=== PATIENT | female | born 1940 | race Caucasian/White ===

== ENCOUNTER 2020-05-01 09:11 | Outpatient (REF) | payer MEDICARE, OTHER, SELFPAY | END 2020-05-01 09:12 | disposition home or self-care (01) | LOC: HO.LAB 09:11 | PROVIDERS: Visit Provider Internal Medicine | DX: Z20.828 Contact with and (suspected) exposure to other viral communicable diseases (principal) | CPT/HCPCS: C9803; U0003 ==

== ENCOUNTER 2020-05-19 07:29 | Outpatient (REF) | payer MEDICARE, OTHER, SELFPAY ==
--- NOTE | 2020-05-19 08:05 | XR_ITS ---
EXAMINATION: XR LUMBOSACRAL SPINE CLINICAL INFORMATION: Back pain COMPARISON: None TECHNIQUE: Three views of the lumbosacral spine. FINDINGS: There is a mild scoliosis the lower lumbar sacral spine convex to left with apex at L4-L5 and convex to the right with apex at L5-S1. Bone alignment is otherwise normal. No fracture or dislocation is seen. There is degenerative disc disease at L4-L5. There is lower lumbar spine facet arthritis. There is evidence of atherosclerotic disease. There are surgical clips in the right upper quadrant suggestive of cholecystectomy. XR/XR lumbar spine 2-3V IMPRESSION: Scoliosis and degenerative changes. Atherosclerotic disease.
[2020-05-19 08:39] LABS: MANUAL DIFF FLAG NO
[2020-05-19 08:44] LABS: Basophils Percent Auto 0.3 % (0-2); Eosinophils Absolute Auto 0.4 X10*3/uL (0.0-0.4); Eosinophils Percent Auto 4.1 % (0-4); Hematocrit 34.2 % (37-47); Imm Gran Abs Auto 0.04 X10*3/uL (0.00-0.03); Imm Gran Pct Auto 0.4 % (0.0-0.4); Lymphocytes Absolute Auto 2.7 X10*3/uL (1.2-4.9); Lymphocytes Percent Auto 26.8 % (20-40); Mean Corpuscular HGB Conc 29.2 g/dl (31.0-35.0); Mean Corpuscular Hemoglobin 24.3 pg (27.0-33.0); Mean Platelet Volume 11.1 fL (9.4-12.3); Monocytes Absolute Auto 0.7 X10*3/uL (0.1-1.2); Monocytes Percent Auto 6.6 % (2-11); Neutrophils Absolute Auto 6.1 X10*3/uL (2.0-8.3); Neutrophils Percent Auto 61.8 % (45-73); Platelet Count 270 X10*3/uL (160-400); Red Blood Count 4.12 X10*6/uL (4.20-5.50); Red Cell Distribution Width 17.8 % (11.0-16.0); White Blood Count 9.9 X10*3/uL (4.8-10.8)
[2020-05-19 09:04] LABS: Estimated Average Glucose 232 mg/dL; Hemoglobin A1c % 9.7 %
[2020-05-19 09:14] LABS: Alanine Aminotransferase 17 U/L (0-31); Alkaline Phosphatase 73 U/L (39-117); Anion Gap 15 (12-20); Aspartate Amino Transferase 16 U/L (5-31); Bilirubin Total 0.3 mg/dL (0.0-1.0); Blood Urea Nitrogen 35 mg/dL (9-16); Calcium 9.2 mg/dL (8.4-10.2); Carbon Dioxide 27 mmol/L (22-29); Chloride 104 mmol/L (96-108); Cholesterol 100 mg/dL; Estimated Glomerular Filt Rate 35; Glucose Fasting 164 mg/dL (60-99); HDL Cholesterol 36 mg/dL; LDL Cholesterol Calculated 21 mg/dl; Potassium 4.1 mmol/l (3.3-5.1); Sodium 142 mmol/L (135-145); Total Protein 6.9 g/dL (6.5-8.0); Triglycerides 215 mg/dL
[2020-05-19 09:20] LABS: Creatinine Urine 95.03 mg/dL; Microalbum/Creatinine Ratio Ur 29.4 ug/mg cr
[2020-05-19 09:33] LABS: Thyroid Stimulating Hormone 1.44 uIU/mL (0.32-4.0)
== END 2020-05-19 07:30 | disposition home or self-care (01) ==
LOC: HO.LAB 07:29
PROVIDERS: PCP Internal Medicine; Visit Provider Internal Medicine
DX: E03.9 Hypothyroidism, unspecified (principal); E11.9 Type 2 diabetes mellitus without complications; Z00.00 Encounter for general adult medical examination without abnormal findings; M54.9 Dorsalgia, unspecified
CPT/HCPCS: 36415; 72100; 80053; 80061; 82043; 83036; 84443; 85025

== ENCOUNTER → 2020-06-11 13:28 | Outpatient (BNVA) | payer MEDICARE, OTHER, SELFPAY | PROVIDERS: PCP Internal Medicine; Referring Provider Internal Medicine; Visit Provider Internal Medicine | DX: I25.10 Atherosclerotic heart disease of native coronary artery without angina pectoris (principal); I65.23 Occlusion and stenosis of bilateral carotid arteries; E78.5 Hyperlipidemia, unspecified | CPT/HCPCS: 93005; 99202 ==

== ENCOUNTER 2020-06-15 16:36 | Emergency (ER) | payer MEDICARE, OTHER, SELFPAY ==
[2020-06-15 17:07] VITALS: BP 188/90; PULSE 96; RESP 18; TEMP 37; O2SAT 99; BMI 34.8
--- NOTE | 2020-06-15 17:07 | ED.GENADULT ---
HPI - General Adult General Chief complaint: General Medical <Tsering Garza NP - Last Filed: 06/15/20 17:13> Stated complaint: Constipation <Tsering Garza NP - Last Filed: 06/15/20 17:13> Time Seen by Provider: 06/15/20 17:05 <Tsering Garza NP - Last Filed: 06/15/20 17:13> Source: patient <Negrita Pastrana MD - Last Filed: 06/16/20 03:11> Mode of arrival: ambulatory <Negrita Pastrana MD - Last Filed: 06/16/20 03:11> Limitations: no limitations <Negrita Pastrana MD - Last Filed: 06/16/20 03:11> History of Present Illness HPI narrative: Patient comes emergency room complaining of constipation since . Patient states she only has liquid fecal material moving around. Patient complaining of bloating. Patient also complaining of foreign body sensation in her right eye for the last 4 days, she does not recall any recent eye trauma. <Negrita Pastrana MD - Last Filed: 06/16/20 03:11> MD complaint: Constipation, foreign body sensation in eye <Negrita Pastrana MD - Last Filed: 06/16/20 03:11> Related Data Home medications: Home Medications Medication Instructions Recorded Confirmed acyclovir 400 mg tablet mg PO 05/18/20 06/11/20 allopurinol 300 mg tablet 300 mg PO DAILY 05/18/20 06/11/20 benzonatate 100 mg capsule mg PO 05/18/20 06/11/20 evolocumab 140 mg/mL subcutaneous mg SUBCUT Q2W 05/18/20 06/11/20 pen injector flash glucose scanning reader #1 ea 05/18/20 06/11/20 gabapentin 100 mg capsule 100 mg PO TID 05/18/20 06/11/20 insulin syringe-needle U-100 1 mL #10 ea 05/18/20 06/11/20 31 gauge x 10/25 nitroglycerin 400 mcg/spray spray SUBLINGUAL 05/18/20 06/11/20 translingual olmesartan 40 mg tablet 40 mg PO DAILY 05/18/20 06/11/20 ticagrelor 60 mg tablet 60 mg PO BID 05/18/20 06/11/20 torsemide 20 mg tablet 20 mg PO DAILY 05/18/20 06/11/20 tramadol 50 mg tablet 50 mg PO TID PRN 05/18/20 06/11/20 aspirin 81 mg tablet,delayed 81 mg PO DAILY 06/11/20 06/11/20 release omeprazole 40 mg capsule,delayed 40 mg PO DAILY cap 06/11/20 06/11/20 release Previous Rx's Medication Instructions Recorded metformin 1,000 mg tablet 1,000 mg PO BID #180 tab 05/18/20 pen needle, diabetic 31 gauge x #1200 ea 05/26/20 5/16 insulin glargine 100 unit/mL (3 25 unit SUBCUT BID #15 ml 05/28/20 mL) subcutaneous pen epinephrine 0.3 mg/0.3 mL 0.3 mg IM Q10M PRN #2 ea 06/02/20 injection, auto-injector insulin aspart U-100 100 unit/mL 16 unit SUBCUT TID 90 Days #43.2 ml 06/11/20 (3 mL) subcutaneous pen erythromycin 1 appl OPHTHALMIC (EYE) DAILY #3.5 06/16/20 g lactulose 10 g PO DAILY PRN #237 ml 06/16/20 <Tsering Garza, ORDER ADMINISTRATOR - Last Filed: 06/15/20 17:13> Allergies/adverse reactions: Allergies Allergy/AdvReac Type Severity Reaction Status Date / Time amlodipine Allergy Unknown rash on Verified 06/11/20 13:36 face canagliflozin [From Invokana] Allergy Unknown Unknown Verified 06/11/20 13:36 fluconazole Allergy Unknown Nausea and Verified 06/11/20 13:36 Vomiting levofloxacin [From Levaquin] Allergy Unknown Unknown Verified 06/11/20 13:36 methylprednisolone Allergy Unknown Unknown Verified 06/11/20 13:36 [From Medrol] metoclopramide [From Reglan] Allergy Unknown Unknown Verified 06/11/20 13:36 morphine Allergy Unknown Unknown Verified 06/11/20 13:36 nitrofurantoin Allergy Unknown Unknown Verified 06/11/20 13:36 [From Macrobid] Penicillins Allergy Unknown Rash Verified 06/11/20 13:36 Sulfa (Sulfonamide Allergy Unknown Unknown Verified 06/11/20 13:36 Antibiotics) tetracycline Allergy Unknown Unknown Verified 06/11/20 13:36 gabapentin Allergy slurred Verified 06/11/20 13:36 speech ciprofloxacin AdvReac Unknown Unknown Verified 06/11/20 13:36 <Tsering Garza NP - Last Filed: 06/15/20 17:13> Review of Systems Review of Systems: Constitutional : No Weight loss, No Fever, No Chills, No Night Sweats, No Fatigue, No Malaise ENT/Mouth : No Hearing loss, No Ear Pain, No Nasal Congestion, No Sinus Pain, No Hoarseness, No sore throat, No Rhinorrhea, No Swallowing Difficulty Eyes: Complaining of foreign body sensation in the right eye for 4 days, No Swelling, No Redness, No Foreign Body, No Discharge, No Vision Changes Cardiovascular : No Chest Pain, No SOB, No Dyspnea on Exertion, No Orthopnea, No Edema, No Palpitations Respiratory : No Cough, No Sputum, No Wheezing, No Smoke Exposure, No Dyspnea Gastrointestinal : No Nausea, No Vomiting, No Diarrhea, complaining of Constipation, No abdominal Pain, complaining of bloating, No Hematochezia, No Melena Genitourinary : no irregular bleeding, No Dysuria, No Urinary Frequency, No Hematuria, No Urinary Incontinence, No Urgency, No Flank Pain, No Urinary Flow Changes, No Hesitancy Musculoskeletal : No joint pain, No Myalgias, No Joint Swelling Skin : No Skin Lesions, No rash Neuro : No Weakness, No Numbness, No Paresthesias, No Loss of Consciousness, No Dizziness, No Headache Psych : No Anxiety/Panic, No Depression, No SI/HI/AH/VH, No Social Issues, Heme/Lymph: No Bruising, No Bleeding,No Lymphadenopathy Endocrine : No Polyuria, No Polydipsia, No Temperature Intolerance <Negrita Pastrana MD - Last Filed: 06/16/20 03:11> [facility] Past Medical History Medical History: Medical History Atherosclerotic cardiovascular disease Back pain Bilateral carotid artery stenosis Blind in both eyes Constipation COPD (chronic obstructive pulmonary disease) CVA (cerebral vascular accident) Diabetes mellitus GERD (gastroesophageal reflux disease) Hyperlipidemia Rheumatoid arthritis <Tsering Garza NP - Last Filed: 06/15/20 17:13> Surgical History: Surgical History History of cholecystectomy History of hysterectomy Hx of appendectomy <Tsering Garza NP - Last Filed: 06/15/20 17:13> Family History Family History: Family History Father No problems noted. Mother No problems noted. <Tsering Garza NP - Last Filed: 06/15/20 17:13> Social History Social History: Social History Alcohol intake: never Smoking Status: Never smoker Advance Directives: No <Tsering Garza NP - Last Filed: 06/15/20 17:13> Physical Exam Vital Signs: Vital Signs: Last Vital Signs Temp 97.8 F 06/16/20 00:25 Pulse 82 06/16/20 00:25 Resp 18 06/16/20 00:25 BP 176/66 H 06/16/20 00:25 Pulse Ox 99 06/16/20 00:25 Body Mass Index 34.8 <Tsering Garza NP - Last Filed: 06/15/20 17:13> Vital Signs: Last Vital Signs Temp 97.8 F 06/16/20 00:25 Pulse 82 06/16/20 00:25 Resp 18 06/16/20 00:25 BP 176/66 H 06/16/20 00:25 Pulse Ox 99 06/16/20 00:25 Body Mass Index 34.8 <Negrita Pastrana MD - Last Filed: 06/16/20 03:11> Appearance: Alert. Oriented X3. No acute distress. Eyes: Pupils equal, round and reactive to light. Fluorescent stain shows a small scratch in the cornea at 06:00 o'clock ENT: Pharynx normal. Neck: Normal inspection. Neck supple. No lymph nodes noted. No crepitus CVS: Normal heart rate and rhythm. Pulses normal. Normal S1 and S2 Respiratory: No respiratory distress. Breath sounds normal. No Wheezing. No rales Abdomen: Soft and nontender. No rigidity. No distention. Skin: Skin warm and dry. Normal skin color. Normal skin turgor. Extremities: No lower extremity edema. No lower extremity edema. No Lacerations. No Rash Neuro: Oriented X 3. No motor deficit. No sensory deficit. Moving all extermities. No slurred speech. <Negrita Pastrana MD - Last Filed: 06/16/20 03:11> Course Course Course Narrative: 1705-This serves as a rapid medical exam. 80 yo female here with past medical history of diabetes, hypertension, asthma,MT with stents, RA, spinal stenosis, COPD, GERD, iDDM here with constipation x 1 month. Some nausea, vomiting and abdominal pain. Leaking stool. Took miralax, linzess, dulcolax this morning with no relief. Will check KUB, labs. Deferred additional HPI, PE, ROS and further evaluation until seen by primary provider. <Tsering Garza NP - Last Filed: 06/15/20 17:13> After an enema, patient had a bowel movement, patient states she feels much better. Patient was given 10 units of insulin, patient has a monitor in her arm to monitor her glucose. Patient will follow-up with her primary care physician tomorrow patient also instructed to follow-up with her corporate development associate. <Negrita Pastrana MD - Last Filed: 06/16/20 03:11> Medical Decision Making Lab Data Result diagrams: : 06/15/20 21:29 06/15/20 21:28 <Tsering Garza NP - Last Filed: 06/15/20 17:13> Labs: Lab Results 06/15/20 06/15/20 06/15/20 Range/Units 21:28 21:28 21:29 WBC 11.5 H (4.8-10.8) X10*3/uL RBC 3.88 L (4.20-5.50) X10*6/uL Hgb 9.6 L (12.0-16.0) g/dl Hct 31.5 L (37-47) % MCV 81.2 (80-98) fL MCH 24.7 L (27.0-33.0) pg MCHC 30.5 L (31.0-35.0) g/dl RDW 17.2 H (11.0-16.0) % Plt Count 331 (160-400) X10*3/uL MPV 11.3 (9.4-12.3) fL Immature Gran % (Auto) 0.3 (0.0-0.4) % Neut % (Auto) 57.9 (45-73) % Lymph % (Auto) 32.3 (20-40) % [place] % (Auto) 6.7 (2-11) % Eos % (Auto) 2.4 (0-4) % Baso % (Auto) 0.4 (0-2) % Lymph # (Auto) 3.7 (1.2-4.9) X10*3/uL [place] # (Auto) 0.8 (0.1-1.2) X10*3/uL Eos # (Auto) 0.3 (0.0-0.4) X10*3/uL Baso # (Auto) 0.1 (0.0-0.2) X10*3/uL Abs Immat Gran (auto) 0.04 H (0.00-0.03) X10*3/uL Absolute Neuts (auto) 6.6 (2.0-8.3) X10*3/uL Absolute Nucleated RBC 0.000 (0.0-0.012) X10*3/uL Nucleated RBC % (auto) 0.0 (0.0-0.2) /100WBC Hold Blue Top SEE NOTE Sodium 134 L (135-145) mmol/L Potassium 5.0 D (3.3-5.1) mmol/l Chloride 97 (96-108) mmol/L Carbon Dioxide 27 (22-29) mmol/L Anion Gap 15 (12-20) BUN 41 H (9-16) mg/dL Creatinine 1.72 H (0.5-1.4) mg/dL Estim Creat Clear Calc 27.7 Estimated GFR 28 Random Glucose 385 H* (60-115) mg/dL Calcium 9.0 (8.4-10.2) mg/dL <Tsering Garza, ORDER ADMINISTRATOR - Last Filed: 06/15/20 17:13> Lab Results 06/15/20 06/15/20 06/15/20 Range/Units 21:28 21:28 21:29 WBC 11.5 H (4.8-10.8) X10*3/uL RBC 3.88 L (4.20-5.50) X10*6/uL Hgb 9.6 L (12.0-16.0) g/dl Hct 31.5 L (37-47) % MCV 81.2 (80-98) fL MCH 24.7 L (27.0-33.0) pg MCHC 30.5 L (31.0-35.0) g/dl RDW 17.2 H (11.0-16.0) % Plt Count 331 (160-400) X10*3/uL MPV 11.3 (9.4-12.3) fL Immature Gran % (Auto) 0.3 (0.0-0.4) % Neut % (Auto) 57.9 (45-73) % Lymph % (Auto) 32.3 (20-40) % [place] % (Auto) 6.7 (2-11) % Eos % (Auto) 2.4 (0-4) % Baso % (Auto) 0.4 (0-2) % Lymph # (Auto) 3.7 (1.2-4.9) X10*3/uL [place] # (Auto) 0.8 (0.1-1.2) X10*3/uL Eos # (Auto) 0.3 (0.0-0.4) X10*3/uL Baso # (Auto) 0.1 (0.0-0.2) X10*3/uL Abs Immat Gran (auto) 0.04 H (0.00-0.03) X10*3/uL Absolute Neuts (auto) 6.6 (2.0-8.3) X10*3/uL Absolute Nucleated RBC 0.000 (0.0-0.012) X10*3/uL Nucleated RBC % (auto) 0.0 (0.0-0.2) /100WBC Hold Blue Top SEE NOTE Sodium 134 L (135-145) mmol/L Potassium 5.0 D (3.3-5.1) mmol/l Chloride 97 (96-108) mmol/L Carbon Dioxide 27 (22-29) mmol/L Anion Gap 15 (12-20) BUN 41 H (9-16) mg/dL Creatinine 1.72 H (0.5-1.4) mg/dL Estim Creat Clear Calc 27.7 Estimated GFR 28 Random Glucose 385 H* (60-115) mg/dL Calcium 9.0 (8.4-10.2) mg/dL <Negrita Pastrana MD - Last Filed: 06/16/20 03:11> Imaging Data KUB: Radiologist's impression: The bowel gas pattern is normal with no evidence of ileus or obstruction. Moderate amount of stool throughout the colon. There is a 0.7 cm calcification over the inferior pole of the left kidney. There are phleboliths within the pelvis. There are vascular calcifications within the pelvis.. The bones are unremarkable. There are cholecystectomy clips in the right upper quadrant. XR/XR KUB IMPRESSION: Nonobstructive bowel gas pattern. Moderate stool burden. 0.7 cm calcification projecting over the inferior pole of the left kidney, that may represent a renal calculus. <Negrita Pastrana MD - Last Filed: 06/16/20 03:11> Discharge Plan Discharge Clinical Impression: Constipation Qualifiers: Constipation type: unspecified constipation type Qualified Code(s): K59.00 - Constipation, unspecified Hyperglycemia due to type 2 diabetes mellitus Qualifiers: Diabetes mellitus intermediate insulin use: with intermediate use Qualified Code(s): E11.65 - Type 2 diabetes mellitus with hyperglycemia Abrasion, corneal Qualifiers: Encounter type: initial encounter Laterality: right Qualified Code(s): S05.01XA - Injury of conjunctiva and corneal abrasion without foreign body, right eye, initial encounter <Tsering Garza NP - Last Filed: 06/15/20 17:13> Patient Disposition: Home, Self-Care <Tsering Garza NP - Last Filed: 06/15/20 17:13> Instructions: Constipation (ED), Corneal Abrasion (ED), Diabetic Hyperglycemia (ED) <Tsering Garza NP - Last Filed: 06/15/20 17:13> Additional Instructions: Please follow-up with your eye doctor tomorrow. Please follow-up with your primary care physician tomorrow. If you have any worsening or new symptoms, please return to the emergency room or call 911 <Tsering Garza NP - Last Filed: 06/15/20 17:13> Prescriptions: New erythromycin 5 mg/gram (0.5 %) ointment 1 appl ophthalmic (eye) DAILY Qty: 3.5 RF: 0 lactulose 10 gram/15 mL solution 10 g PO DAILY PRN (Reason: constipation) Qty: 237 RF: 0 No Action metformin 1,000 mg tablet 1,000 mg PO BID Qty: 180 RF: 8 Lantus Solostar U-100 Insulin 100 unit/mL (3 mL) insulin pen 25 unit subcut BID Qty: 15 RF: 0 insulin aspart U-100 [Novolog Flexpen U-100 Insulin] 100 unit/mL (3 mL) insulin pen 16 unit subcut TID 90 Days Qty: 43.2 RF: 8 allopurinol 300 mg tablet 300 mg PO DAILY RF: 0 tramadol 50 mg tablet 50 mg PO TID PRNRF: 0 gabapentin 100 mg capsule 100 mg PO TID RF: 0 olmesartan 40 mg tablet 40 mg PO DAILY RF: 0 Brilinta 60 mg tablet 60 mg PO BID RF: 0 Repatha SureClick 140 mg/mL pen injector subcut Q2W RF: 0 (DME) insulin syringe-needle U-100 1 mL 31 gauge x 5/16 syringe See Rx Instructions syringe .ROUTE .MEDSUPPLY Qty: 10 RF: 0 acyclovir 400 mg tablet PO RF: 0 torsemide 20 mg tablet 20 mg PO DAILY RF: 0 nitroglycerin 400 mcg/spray spray,non-aerosol sublingual RF: 0 benzonatate 100 mg capsule PO RF: 0 (DME) FreeStyle Raegan 2 [place] Misc See Rx Instructions .ROUTE .MEDSUPPLY Qty: 1 RF: 0 omeprazole 40 mg capsule,delayed release(DR/EC) 40 mg PO DAILY RF: 0 epinephrine [EpiPen 2-Dario] 0.3 mg/0.3 mL auto-injector 0.3 mg IM Q10M PRN (Reason: anaphylaxis) Qty: 2 RF: 5 (DME) pen needle, diabetic [Sure-Fine Pen [place]] 31 gauge x 5/16 needle See Rx Instructions .ROUTE .MEDSUPPLY Qty: 1200 RF: 8 aspirin 81 mg tablet,delayed release (DR/EC) 81 mg PO DAILY RF: 0 <Tsering Garza, ORDER ADMINISTRATOR - Last Filed: 06/15/20 17:13>
--- NOTE | 2020-06-15 17:11 | XR_ITS ---
EXAMINATION: XR ABDOMEN KUB CLINICAL INDICATION: Evaluate stool burden COMPARISON: None TECHNIQUE: AP view of the abdomen. FINDINGS: The bowel gas pattern is normal with no evidence of ileus or obstruction. Moderate amount of stool throughout the colon. There is a 0.7 cm calcification over the inferior pole of the left kidney. There are phleboliths within the pelvis. There are vascular calcifications within the pelvis.. The bones are unremarkable. There are cholecystectomy clips in the right upper quadrant. XR/XR KUB IMPRESSION: Nonobstructive bowel gas pattern. Moderate stool burden. 0.7 cm calcification projecting over the inferior pole of the left kidney, that may represent a renal calculus.
[2020-06-15 21:37] LABS: Basophils Absolute Auto 0.1 X10*3/uL (0.0-0.2); Basophils Percent Auto 0.4 % (0-2); Eosinophils Absolute Auto 0.3 X10*3/uL (0.0-0.4); Eosinophils Percent Auto 2.4 % (0-4); Hematocrit 31.5 % (37-47); Hemoglobin 9.6 g/dl (12.0-16.0); Imm Gran Abs Auto 0.04 X10*3/uL (0.00-0.03); Imm Gran Pct Auto 0.3 % (0.0-0.4); Lymphocytes Absolute Auto 3.7 X10*3/uL (1.2-4.9); Lymphocytes Percent Auto 32.3 % (20-40); MANUAL DIFF FLAG NO; Mean Corpuscular HGB Conc 30.5 g/dl (31.0-35.0); Mean Corpuscular Hemoglobin 24.7 pg (27.0-33.0); Mean Corpuscular Volume 81.2 fL (80-98); Mean Platelet Volume 11.3 fL (9.4-12.3); Monocytes Absolute Auto 0.8 X10*3/uL (0.1-1.2); Monocytes Percent Auto 6.7 % (2-11); Neutrophils Absolute Auto 6.6 X10*3/uL (2.0-8.3); Neutrophils Percent Auto 57.9 % (45-73); Platelet Count 331 X10*3/uL (160-400); Red Blood Count 3.88 X10*6/uL (4.20-5.50); Red Cell Distribution Width 17.2 % (11.0-16.0); White Blood Count 11.5 X10*3/uL (4.8-10.8)
[2020-06-15 22:19] LABS: Anion Gap 15 (12-20); Blood Urea Nitrogen 41 mg/dL (9-16); Carbon Dioxide 27 mmol/L (22-29); Chloride 97 mmol/L (96-108); Creatinine Clr Calc Pharmacy 27.7; Estimated Glomerular Filt Rate 28; Glucose Random 385 mg/dL (60-115); Sodium 134 mmol/L (135-145)
[2020-06-16 00:25] VITALS: BP 176/66; PULSE 82; RESP 18; TEMP 36.6; O2SAT 99
[2020-06-16] MEDS: Sodium Phosphate,Mono-Dibasic 133 ML ENEMA PR (01:44)
[2020-06-16] MEDS: Tetracaine HCl/PF 0.5% Oph Sol 4 ML DROPS 3 DROP EYE-RIGHT (01:44)
[2020-06-16] MEDS: Fluorescein Sodium STRIP 1 STRIP EYE-RIGHT (01:44)
--- NOTE | 2020-06-16 02:08 | PC.NURSE ---
FLEET ENEMA ADMINISTERED, PT NOW SITTING ON BEDSIDE COMMODE.
[2020-06-16] MEDS: Insulin Regular, Human 100 UNIT/ML 3 ML VIAL 10 UNIT SUBCUT (02:39)
--- NOTE | 2020-06-16 02:50 | PC.NURSE ---
PT WAS ABLE TO MOVE A SMALL AMOUNT OF FORMED STOOL. PT REPORTS SHE FEELS A LITTLE BETTER FOLLOWING.
[2020-06-16 03:10] LABS: Glucose, Whole Blood 398 mg/dL (60-115)
== END 2020-06-16 03:44 | disposition home or self-care (01) ==
PROVIDERS: Nurse Practitioner Family; Emergency Provider Emergency Medicine; PCP Internal Medicine
DX: K59.00 Constipation, unspecified (principal); E11.65 Type 2 diabetes mellitus with hyperglycemia; Z79.4 Long term (current) use of insulin; S05.01XA Injury of conjunctiva and corneal abrasion without foreign body, right eye, initial encounter; X58.XXXA Exposure to other specified factors, initial encounter; Y93.9 Activity, unspecified; Y92.9 Unspecified place or not applicable; Y99.9 Unspecified external cause status
CPT/HCPCS: 36415; 74018; 80048; 82947; 85025; 99283

== ENCOUNTER 2020-07-03 15:58 | Outpatient (REF) | payer MEDICARE, OTHER, SELFPAY ==
[2020-07-03 17:00] LABS: Estimated Average Glucose 243 mg/dL; Hemoglobin A1c % 10.1 %
[2020-07-03 17:32] LABS: Anion Gap 20 (12-20); Blood Urea Nitrogen 38 mg/dL (9-16); Calcium 9.8 mg/dL (8.4-10.2); Carbon Dioxide 21 mmol/L (22-29); Chloride 98 mmol/L (96-108); Estimated Glomerular Filt Rate 25; Glucose Random 358 mg/dL (60-115); Potassium 5.2 mmol/l (3.3-5.1); Sodium 134 mmol/L (135-145)
[2020-07-03 17:35] LABS: Vitamin B12 801 pg/mL (200-900)
== END 2020-07-03 15:59 | disposition home or self-care (01) ==
LOC: HO.LAB 15:58
PROVIDERS: PCP Internal Medicine; Visit Provider Internal Medicine
DX: R51.9 Headache, unspecified (principal); E11.9 Type 2 diabetes mellitus without complications; D64.9 Anemia, unspecified
CPT/HCPCS: 36415; 80048; 82607; 83036

== ENCOUNTER 2020-07-09 12:27 | Emergency (ER) | payer MEDICARE, OTHER, SELFPAY ==
[2020-07-09 12:48] VITALS: BP 145/80; BP 157/56; PULSE 80; PULSE 81; RESP 16; O2SAT 98; O2SAT 99; BMI 35.2
--- NOTE | 2020-07-09 12:55 | ECG_ITS ---
Test Reason : CP Blood Pressure : / mmHG Vent. Rate : 079 BPM Atrial Rate : 079 BPM P-R Int : 186 ms QRS Dur : 120 ms QT Int : 394 ms P-R-T Axes : 036 -35 131 degrees QTc Int : 451 ms Normal sinus rhythm Left axis deviation Incomplete left bundle branch block Marked ST abnormality, possible lateral subendocardial injury Abnormal ECG No previous ECGs available Referred By: Generic ED Physician Electronically Signed By:Rojas Centeno
--- NOTE | 2020-07-09 12:55 | ED_ITS ---
HPI - Chest Pain General Chief Complaint: Chest Pain Stated Complaint: CHEST PAIN Time Seen by Provider: 07/09/20 12:55 Source: EMS Mode of arrival: EMS Limitations: no limitations History of Present Illness HPI narrative: This is a 80-year-old female with below noted past medical history including history of asthma, COPD, hypertension, hyperlipidemia, diabetes, obesity as well as cerebrovascular disease with left-sided CVA in December MRI showed stroke involving the left basal ganglial, left frontal lobe and left parietal lobe. Tiny hemorrhagic transformation. She had CT angio of the carotid showing stenosis of 70% and coronary artery disease status post LAD stenting 1995 subsequently 2014 and 2015 being followed by cardiology floor time recently moved here being followed by principal software engineer Dr. Fischer who presents via EMS with complaint of left-sided substernal chest pain onset when she woke up this morning at ADM states she had a brief episode that lasted a few minutes and spontaneously resolved she proceeded to make breakfast and afterwards had sharp stabbing like pain in the left-sided chest for she had to hold her chest and subsequently took 3 nitro sprays 5 minutes apart and called EMS and upon arrival the pain had resolved after nitroglycerin she was given aspirin EN route and transferred to emergency room. States she is worried that she had the pain given her cardiac history. No complaint of pain or discomfort at this time. She denies any recent illness no travel or sick contacts. In review her meds she is on trigger daily asa and ticagrelor MD complaint: chest pain Pertinent past history: coronary artery disease Onset (ago): hour(s) Timing of current episode: now resolved Prior episodes: Yes Onset: during rest Pain location: left chest Pain radiation: none Severity: moderate Quality: sharp Relieving factors: nitroglycerin Exacerbating factors: nothing Treatment prior to arrival: aspirin (Three hundred twenty-four aspirin by EMS) and nitroglycerin Risk Factors Coronary artery disease risk factors: diabetes, hyperlipidemia and hypertension Thoracic aortic dissection risk factors: none Related Data On Oral Contraceptives: No Home Medications Medication Instructions Recorded Confirmed acyclovir 400 mg tablet mg PO 05/18/20 07/07/20 allopurinol 300 mg tablet 300 mg PO DAILY 05/18/20 07/07/20 evolocumab 140 mg/mL subcutaneous mg SUBCUT Q2W 05/18/20 07/07/20 pen injector flash glucose scanning reader #1 ea 05/18/20 07/07/20 gabapentin 100 mg capsule 100 mg PO TID 05/18/20 07/07/20 insulin syringe-needle U-100 1 mL #10 ea 05/18/20 07/07/20 31 gauge x 10/25 nitroglycerin 400 mcg/spray spray SUBLINGUAL 05/18/20 07/07/20 translingual ticagrelor 60 mg tablet 60 mg PO BID 05/18/20 07/07/20 torsemide 20 mg tablet 20 mg PO DAILY 05/18/20 07/07/20 tramadol 50 mg tablet 50 mg PO TID PRN 05/18/20 07/07/20 aspirin 81 mg tablet,delayed 81 mg PO DAILY 06/11/20 07/07/20 release omeprazole 40 mg capsule,delayed 40 mg PO DAILY cap 06/11/20 07/07/20 release Previous Rx's Medication Instructions Recorded metformin 1,000 mg tablet 1,000 mg PO BID #180 tab 05/18/20 pen needle, diabetic 31 gauge x #1200 ea 05/26/2010/25 insulin glargine 100 unit/mL (3 25 unit SUBCUT BID #15 ml 05/28/20 mL) subcutaneous pen epinephrine 0.3 mg/0.3 mL 0.3 mg IM Q10M PRN #2 ea 06/02/20 injection, auto-injector insulin aspart U-100 100 unit/mL 16 unit SUBCUT TID 90 Days #43.2 ml 06/11/20 (3 mL) subcutaneous pen erythromycin 1 appl OPHTHALMIC (EYE) DAILY #3.5 06/16/20 g lactulose 10 g PO DAILY PRN #237 ml 06/16/20 benzonatate 100 mg capsule 100 mg PO ONCE #90 cap 07/07/20 olmesartan 40 mg tablet 40 mg PO DAILY #90 tab 07/07/20 Allergies Allergy/AdvReac Type Severity Reaction Status Date / Time amlodipine Allergy Unknown rash on Verified 07/07/20 11:18 face canagliflozin [From Invokana] Allergy Unknown Unknown Verified 07/07/20 11:18 fluconazole Allergy Unknown Nausea and Verified 07/07/20 11:18 Vomiting levofloxacin [From Levaquin] Allergy Unknown Unknown Verified 07/07/20 11:18 methylprednisolone Allergy Unknown Unknown Verified 07/07/20 11:18 [From Medrol] metoclopramide [From Reglan] Allergy Unknown Unknown Verified 07/07/20 11:18 morphine Allergy Unknown Unknown Verified 07/07/20 11:18 nitrofurantoin Allergy Unknown Unknown Verified 07/07/20 11:18 [From Macrobid] Penicillins Allergy Unknown Rash Verified 07/07/20 11:18 Sulfa (Sulfonamide Allergy Unknown Unknown Verified 07/07/20 11:18 Antibiotics) tetracycline Allergy Unknown Unknown Verified 07/07/20 11:18 gabapentin Allergy slurred Verified 07/07/20 11:18 speech ciprofloxacin AdvReac Unknown Unknown Verified 07/07/20 11:18 Review of Systems Review of Systems: Constitutional: No Weight loss, No Fever, No Chills, No Night Sweats, No Fatigue, No Malaise ENT/Mouth: No Hearing loss, No Ear Pain, No Nasal Congestion, No Sinus Pain, No Hoarseness, No sore throat, No Rhinorrhea, No Swallowing Difficulty Eyes: No Eye Pain, No Swelling, No Redness, No Foreign Body, No Discharge, No Vision Changes Cardiovascular: Chest Pain as noted in HPI , No SOB, No Dyspnea on Exertion, No Orthopnea, No Edema, No Palpitations Respiratory: No Cough, No Sputum, No Wheezing, No Smoke Exposure, No Dyspnea Gastrointestinal: No Nausea, No Vomiting, No Diarrhea, No Constipation, No abdominal Pain, No Hematochezia, No Melena Genitourinary: no irregular bleeding, No Dysuria, No Urinary Frequency, No Hematuria, No Urinary Incontinence, No Urgency, No Flank Pain, No Urinary Flow Changes, No Hesitancy Musculoskeletal: No joint pain, No Myalgias, No Joint Swelling Skin: No Skin Lesions, No rash Neuro: No Weakness, No Numbness, No Paresthesias, No Loss of Consciousness, No Dizziness, No Headache Psych: No Social Issues Heme/Lymph: No Bruising, No Bleeding,No Lymphadenopathy Endocrine: No Polyuria, No Polydipsia, No Temperature Intolerance Yes all other systems are reviewed and are negative PMFSH Past Medical History Medical History Atherosclerotic cardiovascular disease Back pain Bilateral carotid artery stenosis Blind in both eyes Constipation COPD (chronic obstructive pulmonary disease) CVA (cerebral vascular accident) Diabetes mellitus GERD (gastroesophageal reflux disease) Hyperlipidemia Rheumatoid arthritis Surgical History History of cholecystectomy History of hysterectomy Hx of appendectomy Family History Family History Father No problems noted. Mother No problems noted. Social History Social History Alcohol intake: never Smoking Status: Never smoker Advance Directives: No Advance Directives Information Provided: No Physical Exam Vital Signs: Vital Signs: Last Vital Signs Temp 99.0 F 07/09/20 16:31 Pulse 77 07/09/20 16:31 Resp 14 07/09/20 16:31 BP 185/66 H 07/09/20 16:31 Pulse Ox 99 07/09/20 16:31 Body Mass Index 35.2 Reviewed Const: General: cooperative and healthy appearing; No acute distress or intoxicated appearing Nutritional Appearance: average body habitus Orientation/consciousness: patient oriented x3 HENMT: Head: Yes normal to inspection Ears: hearing grossly normal bilaterally Eyes: General: appearance normal, both eyes and all related structures Visual Muhammad: normal visual muhammad by confrontation Neck: Neck: Yes normal visual inspection, No positive Brudzinski's sign, No positive Kernig's sign and No tender Thyroid: Thyroid normal Chest: Chest palpation & inspection: normal inspection of the chest Resp: Effort & Inspection: normal respiratory effort Auscultation: clear to auscultation bilaterally Cardio: Jugular venous distension: no JVD Rate: regular rate Rhythm: regular rhythm Heart sounds: S1 normal heart sound present and S2 normal heart sound present GI: Inspection: Yes normal to inspection Percussion: Yes normal to percussion Auscultation: normal bowel sounds : General: Yes no CVA tenderness Back/Spine/Pelvis: Back: no CVA tenderness Skin: General skin exam: no rashes or lesions noted Neuro: General: patient oriented x3 Extrem: General: Yes normal to inspection Right upper extremity: full ROM Course Course Course Narrative: In review 80-year-old female with extensive cardiovascular disease amongst other history as noted above with multiple comorbidities presenting with left-sided chest pain resolved prior to arrival with nitroglycerin 3 sprays and aspirin EN route by EMS. Has been pain discomfort free here. EKG compared to 06/11/2021 during cardiology visit shows no significant change from today. She has been pain-free here. Hemodynamically stable. Elevated troponin renal function with CKD at baseline. Case discussed with cardiology Dr. Centeno who accepted the patient at [facility] and arranged for transfer to hospitalist services for possible catheterization. Patient is agreeable to having cardiac catheterization and as well as son. Patient has bee n stable in the emergency room offers no complaints of pain or discomfort. No signs or symptoms of infectious pathology. She is COVID negative. All labs, imaging and records printed to be present upon discharge for the receiving facility Consultations Consultation #1: [id number] Case discussed with cardiology Dr. Musa Patient already on Brilinta and aspirin Recommend heparinizing Recommend transfer to [facility] he is already at [facility] and will arrange for transfer and call me back. MDM - Chest Pain Lab Data Result diagrams: 07/09/20 14:11 07/09/20 14:10 Labs: Lab Results 07/09/20 07/09/20 07/09/20 Range/Units 12:55 14:05 14:10 WBC (4.8-10.8) X10*3/uL RBC (4.20-5.50) X10*6/uL Hgb (12.0-16.0) g/dl Hct (37-47) % MCV (80-98) fL MCH (27.0-33.0) pg MCHC (31.0-35.0) g/dl RDW (11.0-16.0) % Plt Count (160-400) X10*3/uL MPV (9.4-12.3) fL Immature Gran % (Auto) (0.0-0.4) % Neut % (Auto) (45-73) % Lymph % (Auto) (20-40) % Smith % (Auto) (2-11) % Eos % (Auto) (0-4) % Baso % (Auto) (0-2) % Lymph # (Auto) (1.2-4.9) X10*3/uL Smith # (Auto) (0.1-1.2) X10*3/uL Eos # (Auto) (0.0-0.4) X10*3/uL Baso # (Auto) (0.0-0.2) X10*3/uL Abs Immat Gran (auto) (0.00-0.03) X10*3/uL Absolute Neuts (auto) (2.0-8.3) X10*3/uL Absolute Nucleated RBC (0.0-0.012) X10*3/uL Nucleated RBC % (auto) (0.0-0.2) /100WBC PT 13.2 H (10.8-13.0) SEC INR 1.1 (0.9-1.1) APTT 33.8 (24.1-38.0) SEC D-Dimer 291 NG/ML Sodium (135-145) mmol/L Potassium (3.3-5.1) mmol/l Chloride (96-108) mmol/L Carbon Dioxide (22-29) mmol/L Anion Gap (12-20) BUN (9-16) mg/dL Creatinine (0.5-1.4) mg/dL Estim Creat Clear Calc Estimated GFR POC Glucose 293 H (60-115) mg/dL Random Glucose (60-115) mg/dL Calcium (8.4-10.2) mg/dL Total Bilirubin (0.0-1.0) mg/dL AST (5-31) U/L ALT (0-31) U/L Alkaline Phosphatase (39-117) U/L Troponin I High Sens (<3.5-17.0) ng/L Total Protein (6.5-8.0) g/dL Albumin (3.5-5.0) g/dL Coronavirus (PCR) NEGATIVE (Negative) Influenza Type A (PCR) NEGATIVE (Negative) Influenza Type B (PCR) NEGATIVE (Negative) RSV RNA Qual (PCR) NEGATIVE (Negative) 07/09/20 07/09/20 07/09/20 Range/Units 14:10 14:11 14:11 WBC 13.0 H (4.8-10.8) X10*3/uL RBC 3.76 L (4.20-5.50) X10*6/uL Hgb 9.2 L (12.0-16.0) g/dl Hct 30.6 L (37-47) % MCV 81.4 (80-98) fL MCH 24.5 L (27.0-33.0) pg MCHC 30.1 L (31.0-35.0) g/dl RDW 17.0 H (11.0-16.0) % Plt Count 289 (160-400) X10*3/uL MPV 10.7 (9.4-12.3) fL Immature Gran % (Auto) 0.4 (0.0-0.4) % Neut % (Auto) 69.6 (45-73) % Lymph % (Auto) 22.1 (20-40) % Smith % (Auto) 5.5 (2-11) % Eos % (Auto) 2.0 (0-4) % Baso % (Auto) 0.4 (0-2) % Lymph # (Auto) 2.9 (1.2-4.9) X10*3/uL Smith # (Auto) 0.7 (0.1-1.2) X10*3/uL Eos # (Auto) 0.3 (0.0-0.4) X10*3/uL Baso # (Auto) 0.1 (0.0-0.2) X10*3/uL Abs Immat Gran (auto) 0.05 H (0.00-0.03) X10*3/uL Absolute Neuts (auto) 9.1 H (2.0-8.3) X10*3/uL Absolute Nucleated RBC 0.000 (0.0-0.012) X10*3/uL Nucleated RBC % (auto) 0.0 (0.0-0.2) /100WBC PT (10.8-13.0) SEC INR (0.9-1.1) APTT (24.1-38.0) SEC D-Dimer NG/ML Sodium 136 (135-145) mmol/L Potassium 5.4 H (3.3-5.1) mmol/l Chloride 100 (96-108) mmol/L Carbon Dioxide 22 (22-29) mmol/L Anion Gap 19 (12-20) BUN 40 H (9-16) mg/dL Creatinine 1.82 H (0.5-1.4) mg/dL Estim Creat Clear Calc 26.3 Estimated GFR 27 POC Glucose (60-115) mg/dL Random Glucose 305 H (60-115) mg/dL Calcium 9.3 (8.4-10.2) mg/dL Total Bilirubin 0.4 (0.0-1.0) mg/dL AST 29 D (5-31) U/L ALT 24 (0-31) U/L Alkaline Phosphatase 77 (39-117) U/L Troponin I High Sens 2669.0 H (<3.5-17.0) ng/L Total Protein 6.8 (6.5-8.0) g/dL Albumin 3.8 (3.5-5.0) g/dL Coronavirus (PCR) (Negative) Influenza Type A (PCR) (Negative) Influenza Type B (PCR) (Negative) RSV RNA Qual (PCR) (Negative) 07/09/20 Range/Units 17:56 WBC (4.8-10.8) X10*3/uL RBC (4.20-5.50) X10*6/uL Hgb (12.0-16.0) g/dl Hct (37-47) % MCV (80-98) fL MCH (27.0-33.0) pg MCHC (31.0-35.0) g/dl RDW (11.0-16.0) % Plt Count (160-400) X10*3/uL MPV (9.4-12.3) fL Immature Gran % (Auto) (0.0-0.4) % Neut % (Auto) (45-73) % Lymph % (Auto) (20-40) % Smith % (Auto) (2-11) % Eos % (Auto) (0-4) % Baso % (Auto) (0-2) % Lymph # (Auto) (1.2-4.9) X10*3/uL Smith # (Auto) (0.1-1.2) X10*3/uL Eos # (Auto) (0.0-0.4) X10*3/uL Baso # (Auto) (0.0-0.2) X10*3/uL Abs Immat Gran (auto) (0.00-0.03) X10*3/uL Absolute Neuts (auto) (2.0-8.3) X10*3/uL Absolute Nucleated RBC (0.0-0.012) X10*3/uL Nucleated RBC % (auto) (0.0-0.2) /100WBC PT (10.8-13.0) SEC INR (0.9-1.1) APTT (24.1-38.0) SEC D-Dimer NG/ML Sodium (135-145) mmol/L Potassium (3.3-5.1) mmol/l Chloride (96-108) mmol/L Carbon Dioxide (22-29) mmol/L Anion Gap (12-20) BUN (9-16) mg/dL Creatinine (0.5-1.4) mg/dL Estim Creat Clear Calc Estimated GFR POC Glucose 188 H (60-115) mg/dL Random Glucose (60-115) mg/dL Calcium (8.4-10.2) mg/dL Total Bilirubin (0.0-1.0) mg/dL AST (5-31) U/L ALT (0-31) U/L Alkaline Phosphatase (39-117) U/L Troponin I High Sens (<3.5-17.0) ng/L Total Protein (6.5-8.0) g/dL Albumin (3.5-5.0) g/dL Coronavirus (PCR) (Negative) Influenza Type A (PCR) (Negative) Influenza Type B (PCR) (Negative) RSV RNA Qual (PCR) (Negative) Critical Care Time Critical Care Time Critical Care Time: Yes Total Critical Care Time: 65 Attestation: 80-year-old female with multiple comorbidities highly suspicious story for acute coronary syndrome requiring rapid evaluation serial EKGs consultation and management of heparin drip and arrangement of transfer to [facility] for high-level care and possible catheterization tomorrow morning. Discharge Plan Discharge Clinical Impression: CKD (chronic kidney disease), Acute non-ST elevation myocardial infarction (NSTEMI) Patient Disposition: Xfer Other Prescriptions: No Action metformin 1,000 mg tablet 1,000 mg PO BID Qty: 180 RF: 8 Lantus Solostar U-100 Insulin 100 unit/mL (3 mL) insulin pen 25 unit subcut BID Qty: 15 RF: 0 insulin aspart U-100 [Novolog Flexpen U-100 Insulin] 100 unit/mL (3 mL) insulin pen 16 unit subcut TID 90 Days Qty: 43.2 RF: 8 erythromycin 5 mg/gram (0.5 %) ointment 1 appl ophthalmic (eye) DAILY Qty: 3.5 RF: 0 lactulose 10 gram/15 mL solution 10 g PO DAILY PRN (Reason: constipation) Qty: 237 RF: 0 allopurinol 300 mg tablet 300 mg PO DAILY RF: 0 tramadol 50 mg tablet 50 mg PO TID PRNRF: 0 gabapentin 100 mg capsule 100 mg PO TID RF: 0 Brilinta 60 mg tablet 60 mg PO BID RF: 0 Repatha SureClick 140 mg/mL pen injector subcut Q2W RF: 0 (DME) insulin syringe-needle U-100 1 mL 31 gauge x 5/16 syringe See Rx Instructions syringe .ROUTE .MEDSUPPLY Qty: 10 RF: 0 acyclovir 400 mg tablet PO RF: 0 torsemide 20 mg tablet 20 mg PO DAILY RF: 0 nitroglycerin 400 mcg/spray spray,non-aerosol sublingual RF: 0 (DME) FreeStyle Raegan 2 [place] Misc See Rx Instructions .ROUTE .MEDSUPPLY Qty: 1 RF: 0 omeprazole 40 mg capsule,delayed release(DR/EC) 40 mg PO DAILY RF: 0 epinephrine [EpiPen 2-Dario] 0.3 mg/0.3 mL auto-injector 0.3 mg IM Q10M PRN (Reason: anaphylaxis) Qty: 2 RF: 5 (DME) pen needle, diabetic [Sure-Fine Pen Fancy Gap] 31 gauge x 5/16 needle See Rx Instructions .ROUTE .MEDSUPPLY Qty: 1200 RF: 8 olmesartan 40 mg tablet 40 mg PO DAILY Qty: 90 RF: 8 benzonatate 100 mg capsule 100 mg PO ONCE Qty: 90 RF: 8 aspirin 81 mg tablet,delayed release (DR/EC) 81 mg PO DAILY RF: 0
--- NOTE | 2020-07-09 12:55 | XR_ITS ---
EXAMINATION: XR CHEST CLINICAL INFORMATION: Chest pain COMPARISON: None TECHNIQUE: Frontal view of the chest was obtained. FINDINGS: Cardiac leads overlie the chest. The lungs are well expanded. There is no focal consolidation, edema, or effusion. No pneumothorax. The cardiomediastinal silhouette is within normal limits. No acute osseous abnormality. XR/XR chest 1V IMPRESSION: No acute pulmonary finding.
[2020-07-09 12:59] LABS: Glucose, Whole Blood 293 mg/dL (60-115)
[2020-07-09 14:00] VITALS: BP 178/89; PULSE 78
[2020-07-09 14:16] LABS: MANUAL DIFF FLAG NO
[2020-07-09 14:21] LABS: Basophils Absolute Auto 0.1 X10*3/uL (0.0-0.2); Basophils Percent Auto 0.4 % (0-2); Eosinophils Absolute Auto 0.3 X10*3/uL (0.0-0.4); Hematocrit 30.6 % (37-47); Hemoglobin 9.2 g/dl (12.0-16.0); Imm Gran Abs Auto 0.05 X10*3/uL (0.00-0.03); Imm Gran Pct Auto 0.4 % (0.0-0.4); Lymphocytes Absolute Auto 2.9 X10*3/uL (1.2-4.9); Lymphocytes Percent Auto 22.1 % (20-40); Mean Corpuscular HGB Conc 30.1 g/dl (31.0-35.0); Mean Corpuscular Hemoglobin 24.5 pg (27.0-33.0); Mean Corpuscular Volume 81.4 fL (80-98); Mean Platelet Volume 10.7 fL (9.4-12.3); Monocytes Absolute Auto 0.7 X10*3/uL (0.1-1.2); Monocytes Percent Auto 5.5 % (2-11); Neutrophils Absolute Auto 9.1 X10*3/uL (2.0-8.3); Neutrophils Percent Auto 69.6 % (45-73); Platelet Count 289 X10*3/uL (160-400); Red Blood Count 3.76 X10*6/uL (4.20-5.50)
[2020-07-09 14:26] LABS: INTERNATIONAL NORM RATIO 1.1 (0.9-1.1); Prothrombin Time 13.2 SEC (10.8-13.0)
[2020-07-09 14:27] LABS: D Dimer 291 NG/ML; Partial Thromboplastin Time 33.8 SEC (24.1-38.0)
[2020-07-09 14:41] LABS: Alanine Aminotransferase 24 U/L (0-31); Albumin Level 3.8 g/dL (3.5-5.0); Alkaline Phosphatase 77 U/L (39-117); Anion Gap 19 (12-20); Aspartate Amino Transferase 29 U/L (5-31); Bilirubin Total 0.4 mg/dL (0.0-1.0); Blood Urea Nitrogen 40 mg/dL (9-16); Calcium 9.3 mg/dL (8.4-10.2); Carbon Dioxide 22 mmol/L (22-29); Chloride 100 mmol/L (96-108); Creatinine Clr Calc Pharmacy 26.3; Estimated Glomerular Filt Rate 27; Glucose Random 305 mg/dL (60-115); Potassium 5.4 mmol/l (3.3-5.1); Sodium 136 mmol/L (135-145); Total Protein 6.8 g/dL (6.5-8.0)
[2020-07-09] MEDS: Sodium Polystyrene Sulfon/Sorb 15 GM/60 ML ORAL.SUSP 45 GM PO (15:04)
[2020-07-09] MEDS: 0.9 % Sodium Chloride 500 ML IV (15:04)
[2020-07-09] MEDS: Insulin Regular, Human 100 UNIT/ML 3 ML VIAL IVPUSH (15:05)
[2020-07-09 16:31] VITALS: BP 185/66; PULSE 77; RESP 14; TEMP 37.2; O2SAT 99
[2020-07-09 16:50] LABS: Influenza A PCR NEGATIVE (Negative); Influenza B PCR NEGATIVE (Negative); Resp Syncy Virus RNA Qual PCR NEGATIVE (Negative); SARS COV2 PCR INHOUSE NEGATIVE (Negative)
--- NOTE | 2020-07-09 17:10 | PC.NURSE ---
plan to transfer pt to [facility], waiting on bed assignment
[2020-07-09 18:00] LABS: Glucose, Whole Blood 188 mg/dL (60-115)
[2020-07-09 18:27] VITALS: BP 199/57; PULSE 82; RESP 18; TEMP 37.2; O2SAT 96
[2020-07-09] MEDS: Heparin Sodium,Porcine 5,000 UNIT/ML VIAL 3700 UNIT IVPUSH (18:35)
[2020-07-09 18:40] LABS: Glucose Urine UA NEG (NEG); Leukocyte Esterase Urine TRACE (NEG); Nitrite Urine NEG (NEG); UACC Culture Trigger YES; Urine Blood NEG (NEG); Urine Ketones NEG (NEG); Urine Protein NEG (NEG-TRACE)
[2020-07-09] MEDS: Heparin Sodium,Porcine/1/2NS 25,000 UNIT/250 ML IV.SOLN 13.02 UNIT IVCONT (18:41)
[2020-07-09 18:46] LABS: Appearance Urine CLEAR; Color Urine YELLOW
[2020-07-09 18:50] LABS: Bacteria Urine TRACE /LPF; Hyaline Casts Urine 0-2 /LPF; RBC Urine 0-2 /HPF (0); Squamous Epithelial Cell Urine TRACE /LPF; UACC CULT YES
--- NOTE | 2020-07-09 18:57 | PC.NURSE ---
report called to [facility]
== END 2020-07-09 19:15 | disposition other institution (70) ==
PROVIDERS: Nurse Practitioner Primary Care; Emergency Provider Emergency Medicine; PCP Internal Medicine
DX: I21.4 Non-ST elevation (NSTEMI) myocardial infarction (principal); E11.22 Type 2 diabetes mellitus with diabetic chronic kidney disease; I12.9 Hypertensive chronic kidney disease with stage 1 through stage 4 chronic kidney disease, or unspecified chronic kidney disease; N18.9 Chronic kidney disease, unspecified; Z20.822 Contact with and (suspected) exposure to COVID-19; Z79.4 Long term (current) use of insulin; Z79.82 Long term (current) use of aspirin; Z79.899 Other long term (current) drug therapy
CPT/HCPCS: 0241U; 36415; 71045; 80053; 81001; 82947; 84484; 85025; 85379; 85610; 85730; 87086; 87147; 93005; 96361; 96365; 96366; 96375; 99283; 99291

== ENCOUNTER 2020-07-16 13:57 | Outpatient (REF) | payer MEDICARE, OTHER, SELFPAY ==
[2020-07-16 15:31] LABS: Anion Gap 16 (12-20); Blood Urea Nitrogen 32 mg/dL (9-16); Calcium 8.9 mg/dL (8.4-10.2); Carbon Dioxide 24 mmol/L (22-29); Chloride 100 mmol/L (96-108); Estimated Glomerular Filt Rate 29; Glucose Random 221 mg/dL (60-115); Sodium 135 mmol/L (135-145)
== END 2020-07-16 13:58 | disposition home or self-care (01) ==
LOC: HO.LAB 13:57
PROVIDERS: PCP Internal Medicine; Visit Provider Internal Medicine Cardiovascular Disease
DX: E11.9 Type 2 diabetes mellitus without complications (principal); I63.9 Cerebral infarction, unspecified
CPT/HCPCS: 36415; 80048

== ENCOUNTER → 2020-07-20 11:07 | Outpatient (BNVA) | payer MEDICARE, OTHER, SELFPAY | PROVIDERS: Visit Provider Internal Medicine Endocrinology, Diabetes & Metabolism | DX: I25.10 Atherosclerotic heart disease of native coronary artery without angina pectoris (principal); I65.23 Occlusion and stenosis of bilateral carotid arteries; E78.5 Hyperlipidemia, unspecified; I10 Essential (primary) hypertension; E11.8 Type 2 diabetes mellitus with unspecified complications; I50.32 Chronic diastolic (congestive) heart failure; N18.9 Chronic kidney disease, unspecified | CPT/HCPCS: 99202; 99212 ==

== ENCOUNTER 2020-08-03 13:14 | Outpatient (REF) | payer MEDICARE, OTHER, SELFPAY ==
--- NOTE | ~2020-08-03 | US_ITS ---
EXAMINATION: US EXTRACRANIAL CAROTID DUPLEX, BILATERAL CLINICAL INFORMATION: Carotid stenosis COMPARISON: None TECHNIQUE: Real-time ultrasound and Doppler techniques (integrating B-mode 2-D vascular images, Doppler spectral analysis and color-flow Doppler imaging) were utilized to interrogate the extracranial carotid arteries, the vertebral arteries and proximal subclavian arteries bilaterally. The degree of stenosis is determined by criteria similar to NASCET. FINDINGS: Right Side: 1. There is moderate calcified atherosclerotic plaque seen in the bifurcation/proximal ICA region. 2. The common carotid artery PSV proximally is 109 cm/s and distally 114 cm/s. 3. The proximal internal carotid artery velocities are 97 cm/s systolic and 21 cm/s diastolic. 4. The proximal external carotid artery PSV is 218 cm/s suggestive of stenosis. 5. The vertebral artery shows antegrade flow. 6. The subclavian artery shows increased peak systolic velocity suggestive of stenosis. Left Side: 1. There is moderate calcified atherosclerotic plaque seen in the bifurcation/proximal ICA region. 2. The common carotid artery PSV proximally is 120 cm/s and distally 115 cm/s. 3. The proximal internal carotid artery velocities are 163 cm/s systolic and 27 cm/s diastolic. 4. The proximal external carotid artery PSV is cm/s. 5. The vertebral artery shows antegrade flow. 6. The subclavian artery waveforms are 195. US/US carotid duplex BI IMPRESSION: 1. RIGHT: Moderate calcified plaque. Mild 0-49% right ICA stenosis by peak systolic velocity criteria. Right ECA and subclavian artery stenoses. 2. LEFT: Moderate calcified plaque. Moderate 50-79% left ICA stenosis by peak systolic velocity criteria. Left ECA stenosis.
== END 2020-08-03 13:15 | disposition home or self-care (01) ==
LOC: HO.US 13:14
PROVIDERS: Visit Provider Internal Medicine
DX: I65.23 Occlusion and stenosis of bilateral carotid arteries (principal)
CPT/HCPCS: 93880

== ENCOUNTER → 2020-08-31 13:26 | Outpatient (BNVA) | payer MEDICARE, OTHER, SELFPAY | PROVIDERS: PCP Internal Medicine; Visit Provider Internal Medicine | DX: I25.10 Atherosclerotic heart disease of native coronary artery without angina pectoris (principal); I65.23 Occlusion and stenosis of bilateral carotid arteries; I13.0 Hypertensive heart and chronic kidney disease with heart failure and stage 1 through stage 4 chronic kidney disease, or unspecified chronic kidney disease; I50.32 Chronic diastolic (congestive) heart failure; E11.22 Type 2 diabetes mellitus with diabetic chronic kidney disease; N18.9 Chronic kidney disease, unspecified; E78.5 Hyperlipidemia, unspecified | CPT/HCPCS: 99212 ==

== ENCOUNTER 2020-09-01 16:24 | Outpatient (REF) | payer MEDICARE, OTHER, SELFPAY ==
--- NOTE | ~2020-09-01 | XR_ITS ---
EXAMINATION: LEFT SHOULDER X-RAY AND PELVIS AND RIGHT HIP X-RAY CLINICAL INFORMATION: Pain COMPARISON: None TECHNIQUE: One view of the pelvis and 2 views of the right hip and 3 views of the left shoulder FINDINGS: Pelvis and right hip: Bone alignment is normal. No fracture or dislocation is seen. There is arthritis at the right hip joint with joint space narrowing and osteophyte formation. There is arthritis at the left hip joint as well. Bones of the pelvis are otherwise unremarkable. There is soft tissue arterial calcification. There are multiple pelvic nonvascular calcifications probably representing calcified phleboliths and calcified lymph nodes. There are degenerative changes of the lower lumbar spine. Left shoulder: No fracture is seen. The left acromioclavicular joint appears widened measuring 1.5 cm. There is arthritis at the left acromioclavicular joint with osteophyte. The glenohumeral joint is normal. There is some faint soft tissue calcification adjacent to the left greater tuberosity. There is a density in the left upper lobe measuring 1 x 1.5 cm probably representing a calcified pulmonary nodule or calcified pleural plaque. This appears unchanged from previous chest x-ray June 2020 XR/XR hip RT min 2V IMPRESSION: Pelvis and right hip: Right hip arthritis. Atherosclerotic disease. Left shoulder: No fracture. Widened left acromioclavicular joint. Arthritis at the left acromioclavicular joint. Soft tissue calcifications adjacent to the left greater tuberosity suggestive of calcific tendinitis.
--- NOTE | ~2020-09-01 | XR_ITS ---
EXAMINATION: LEFT SHOULDER X-RAY AND PELVIS AND RIGHT HIP X-RAY CLINICAL INFORMATION: Pain COMPARISON: None TECHNIQUE: One view of the pelvis and 2 views of the right hip and 3 views of the left shoulder FINDINGS: Pelvis and right hip: Bone alignment is normal. No fracture or dislocation is seen. There is arthritis at the right hip joint with joint space narrowing and osteophyte formation. There is arthritis at the left hip joint as well. Bones of the pelvis are otherwise unremarkable. There is soft tissue arterial calcification. There are multiple pelvic nonvascular calcifications probably representing calcified phleboliths and calcified lymph nodes. There are degenerative changes of the lower lumbar spine. Left shoulder: No fracture is seen. The left acromioclavicular joint appears widened measuring 1.5 cm. There is arthritis at the left acromioclavicular joint with osteophyte. The glenohumeral joint is normal. There is some faint soft tissue calcification adjacent to the left greater tuberosity. There is a density in the left upper lobe measuring 1 x 1.5 cm probably representing a calcified pulmonary nodule or calcified pleural plaque. This appears unchanged from previous chest x-ray June 2020 XR/XR shoulder LT min 2V IMPRESSION: Pelvis and right hip: Right hip arthritis. Atherosclerotic disease. Left shoulder: No fracture. Widened left acromioclavicular joint. Arthritis at the left acromioclavicular joint. Soft tissue calcifications adjacent to the left greater tuberosity suggestive of calcific tendinitis.
[2020-09-01 17:03] LABS: MANUAL DIFF FLAG NO
[2020-09-01 17:06] LABS: Basophils Percent Auto 0.3 % (0-2); Eosinophils Absolute Auto 0.2 X10*3/uL (0.0-0.4); Eosinophils Percent Auto 2.1 % (0-4); Hematocrit 29.8 % (37-47); Hemoglobin 8.7 g/dl (12.0-16.0); Imm Gran Abs Auto 0.05 X10*3/uL (0.00-0.03); Imm Gran Pct Auto 0.4 % (0.0-0.4); Lymphocytes Absolute Auto 3.1 X10*3/uL (1.2-4.9); Lymphocytes Percent Auto 26.7 % (20-40); Mean Corpuscular HGB Conc 29.2 g/dl (31.0-35.0); Mean Corpuscular Hemoglobin 23.5 pg (27.0-33.0); Mean Corpuscular Volume 80.3 fL (80-98); Mean Platelet Volume 10.6 fL (9.4-12.3); Monocytes Absolute Auto 0.8 X10*3/uL (0.1-1.2); Monocytes Percent Auto 6.7 % (2-11); NRBC Pct Auto 0.2 /100WBC (0.0-0.2); Neutrophils Absolute Auto 7.5 X10*3/uL (2.0-8.3); Neutrophils Percent Auto 63.8 % (45-73); Platelet Count 340 X10*3/uL (160-400); Red Blood Count 3.71 X10*6/uL (4.20-5.50); Red Cell Distribution Width 18.4 % (11.0-16.0); White Blood Count 11.7 X10*3/uL (4.8-10.8)
[2020-09-01 17:33] LABS: Anion Gap 19 (12-20); Blood Urea Nitrogen 51 mg/dL (9-16); Calcium 9.6 mg/dL (8.4-10.2); Carbon Dioxide 21 mmol/L (22-29); Chloride 101 mmol/L (96-108); Estimated Glomerular Filt Rate 23; Glucose Random 117 mg/dL (60-115); Potassium 4.8 mmol/L (3.3-5.1); Sodium 136 mmol/L (135-145)
[2020-09-01 17:46] LABS: Thyroid Stimulating Hormone 1.26 uIU/mL (0.32-4.0)
== END 2020-09-01 16:25 | disposition home or self-care (01) ==
LOC: HO.LAB 16:24
PROVIDERS: PCP Internal Medicine; Visit Provider Internal Medicine
DX: Z00.00 Encounter for general adult medical examination without abnormal findings (principal); R51.9 Headache, unspecified; E03.9 Hypothyroidism, unspecified; M25.551 Pain in right hip; M25.512 Pain in left shoulder
CPT/HCPCS: 36415; 73030; 73502; 80048; 84443; 85025

== ENCOUNTER → 2020-10-07 15:45 | Outpatient (BNVA) | payer MEDICARE, OTHER, SELFPAY | PROVIDERS: PCP Internal Medicine; Visit Provider Internal Medicine Pulmonary Disease | DX: R06.00 Dyspnea, unspecified (principal); J45.909 Unspecified asthma, uncomplicated | CPT/HCPCS: 99202 ==

== ENCOUNTER → 2020-10-14 13:02 | Outpatient (BNVA) | payer MEDICARE, OTHER, SELFPAY | PROVIDERS: PCP Internal Medicine; Visit Provider Internal Medicine Endocrinology, Diabetes & Metabolism | CPT/HCPCS: Q3014 ==

== ENCOUNTER → 2020-11-30 15:03 | Outpatient (BNVA) | payer MEDICARE, OTHER, SELFPAY | PROVIDERS: PCP Internal Medicine; Visit Provider Internal Medicine | DX: I25.10 Atherosclerotic heart disease of native coronary artery without angina pectoris (principal); I25.5 Ischemic cardiomyopathy; I65.23 Occlusion and stenosis of bilateral carotid arteries; E11.22 Type 2 diabetes mellitus with diabetic chronic kidney disease; I12.9 Hypertensive chronic kidney disease with stage 1 through stage 4 chronic kidney disease, or unspecified chronic kidney disease; N18.9 Chronic kidney disease, unspecified; E78.5 Hyperlipidemia, unspecified; Z51.5 Encounter for palliative care | CPT/HCPCS: 99212 ==

== ENCOUNTER → 2020-12-16 14:28 | Outpatient (BNVA) | payer MEDICARE, OTHER, SELFPAY | PROVIDERS: PCP Internal Medicine; Visit Provider Internal Medicine Endocrinology, Diabetes & Metabolism | DX: E11.65 Type 2 diabetes mellitus with hyperglycemia (principal); E11.22 Type 2 diabetes mellitus with diabetic chronic kidney disease; E11.21 Type 2 diabetes mellitus with diabetic nephropathy; E11.3519 Type 2 diabetes mellitus with proliferative diabetic retinopathy with macular edema, unspecified eye; E11.42 Type 2 diabetes mellitus with diabetic polyneuropathy; I12.9 Hypertensive chronic kidney disease with stage 1 through stage 4 chronic kidney disease, or unspecified chronic kidney disease; N18.30 Chronic kidney disease, stage 3 unspecified; E04.2 Nontoxic multinodular goiter; E78.5 Hyperlipidemia, unspecified; Z79.4 Long term (current) use of insulin | CPT/HCPCS: Q3014 ==

== ENCOUNTER 2020-12-29 11:29 | Outpatient (REF) | payer OTHER, SELFPAY ==
[2020-12-29 12:22] LABS: Influenza A PCR NEGATIVE (Negative); Influenza B PCR NEGATIVE (Negative); Resp Syncy Virus RNA Qual PCR NEGATIVE (Negative); SARS COV2 PCR INHOUSE NEGATIVE (Negative)
== END 2020-12-29 11:30 | disposition home or self-care (01) ==
LOC: HO.HVNA 11:29
PROVIDERS: Visit Provider Internal Medicine Hematology & Oncology
DX: Z20.822 Contact with and (suspected) exposure to COVID-19 (principal)
CPT/HCPCS: 0241U; 36415